=== PATIENT | female | born 1955 | race Caucasian/White ===

== ENCOUNTER 2016-08-26 04:50 | Inpatient (IN) | payer OTHER ==
[~2016-08-26] VITALS: Ht 160 cm; Wt 98.0 kg
--- NOTE | ~2016-08-26 | P ---
[facility] [place] [address] PROCEDURE REPORT Name: NAHED GOOD Aman Room #: 442-P [facility] IN M.R.#: [id number] Admission: 08/26/16 Attend Phys: Jose C Mac MD Discharge: Date of : 57 Report #: [id number] THIS REPORT FOR: //name// CC: Ja Mac INPATIENT UPPER ENDOSCOPY REPORT BRIEF HISTORY: The patient is a 61-year-old woman who presented with abdominal pain yesterday. She has right upper quadrant epigastric pain. These symptoms are new, and she has not had abdominal pain of this quality before. She does have a history of reflux disease, controlled with medical therapy without ongoing reflux symptoms. She is noted to have gallstones on ultrasound. PREOPERATIVE DIAGNOSIS: Abdominal pain. POSTOPERATIVE DIAGNOSES: 1. A 4-5 cm sliding-type hiatus hernia. 2. Diffuse gastritis. MEDICATIONS: Deep sedation with propofol per anesthesia. SPECIMEN: Biopsies of gastritis. ESTIMATED BLOOD LOSS: 3 mL. PROCEDURE: EGD with biopsy. FINDINGS: Prior to propofol sedation, procedure of upper endoscopy discussed with the patient as well as potential risks and its complications. She indicates she understands and desires to proceed. DESCRIPTION OF PROCEDURE: With the patient in left lateral decubitus position, the [employer] video endoscope was inserted in the cervical esophagus under direct vision without difficulty. Examination of this organ through its entire length revealed normal esophageal mucosa down the squamocolumnar junction. Squamocolumnar junction was noted to be within normal limits. No ulcers, erosions or Spear mucosa was seen. However, she was noted to have a moderately large hiatus hernia measuring about 5 cm greatest dimension. The mucosa of the hernia was normal. No blood was seen. No ulcers were seen associated with the hernia. Scope was advanced into the stomach, was examined on end views as well as retroflexed views. There was erythema in the antrum. No ulcers, erosions or bleeding lesions were seen. Upon retroflexion, the hiatus hernia was seen. No other abnormalities were identified. The pylorus, duodenal bulb and postbulbar sweep were all inspected and noted to be within [facility] [address] [place] [address] PROCEDURE REPORT Name: MARIA R GOODPATRICIA Newton Room #: 442-P [facility] IN ..#: [id number] Admission: 08/26/16 Attend Phys: Jose C Mac MD Discharge: Date of : 57 Report #: [id number] normal limits. At that point, the scope was slowly withdrawn, and careful circumferential views confirmed the above findings. The patient tolerated the procedure well. CONDITION OF THE PATIENT UPON DISCHARGE: Following procedure, the patient drowsy and prepared for colonoscopy. DISPOSITION: I do not see evidence of ulcer. Her pain certainly may be related to gallbladder disease. We will follow up on biopsies. We will proceed with colonoscopy at this time for evaluation of her rectal bleeding. <ELECTRONICALLY SIGNED> By: Dutch German MD 08/28/16 1742 1214 [id number] Dutch German MD /nt
--- NOTE | ~2016-08-26 | P ---
[facility] [place] [address] PROCEDURE REPORT Name: NAHED GOOD Aman Room #: 442-P [facility] IN M.R.#: [id number] Admission: 08/26/16 Attend Phys: Jose C Mac MD Discharge: Date of : 57 Report #: [id number] THIS REPORT FOR: //name// CC: Ja Mac INPATIENT COLONOSCOPY REPORT BRIEF HISTORY: The patient is a 61-year-old woman with recent rectal bleeding. She last had a colonoscopy more than 5 years ago. PREOPERATIVE DIAGNOSIS: Rectal bleeding. POSTOPERATIVE DIAGNOSES: 1. Diminutive polyp, 40 cm. 2. Moderately severe diverticulosis coli. 3. Small internal hemorrhoids. MEDICATIONS: Deep sedation with propofol per anesthesia. SPECIMEN: Polyp from 40 cm. ESTIMATED BLOOD LOSS: 3 mL. PROCEDURE: Colonoscopy to cecum and terminal ileum with biopsy. FINDINGS: Prior to propofol sedation, procedure of colonoscopy discussed with the patient as well as potential risks and its complications. She indicates she understands and desires to proceed. DESCRIPTION OF PROCEDURE: With the patient in left lateral decubitus position, digital examination was completed which revealed no abnormalities. Subsequently, the [employer] video colonoscope was introduced into the rectum and advanced under direct vision to the cecum. Done with minimal difficulty. The cecum was identified by the ileocecal valve and the appendiceal orifice. I was able to visualize the distal segment of terminal ileum, which was inspected and noted to be unremarkable. At that point, the scope was withdrawn, and careful circumferential views obtained including retroflexing the scope in the ascending colon. Upon slow withdrawal of the scope, there was noted to be some limitations of prep, but this washed up very easily and we were able to suction away the material. As we withdrew the scope, the mucosa was inspected. She was noted to have mucosa. No inflammatory changes were seen. An occasional diverticulum was seen in the proximal colon, but no significant abnormalities were noted until we reached the left colon, at which point she was found to have a diminutive polyp at 40 cm. This polyp was removed by biopsy. Scope was [facility] [address] [place] [address] PROCEDURE REPORT Name: LATISHANAHED Room #: 442-P [facility] IN ..#: [id number] Admission: 08/26/16 Attend Phys: Jose C Mac MD Discharge: Date of : 57 Report #: [id number] further withdrawn, and she was noted have moderately severe diverticular disease without endoscopic evidence of diverticulitis. No blood was seen. As we withdrew the scope, no additional abnormalities were seen. The scope was withdrawn into the rectum, and no mucosal abnormalities were seen. Upon retroflexion, small hemorrhoids were seen. This is likely the site of her recent rectal bleeding. Active bleeding was not seen. Scope was withdrawn. The patient tolerated the procedure well. DISPOSITION: The patient presented with a rectal bleeding. Findings today reveal diverticular disease and a small polyp and hemorrhoids. The bleeding likely came from the hemorrhoids. We will follow up on the path. If this is an adenoma, we will have her return for followup colonoscopy in 5 years; if not, 10 years would be indicated. <ELECTRONICALLY SIGNED> By: Dutch German MD 08/28/16 1742 1241 0249 Dutch German MD /nt
--- NOTE | ~2016-08-26 | O ---
[facility] [place] [address] OPERATIVE REPORT Name: NAHED GOOD Room #: 442-P ADM IN M.R.#: [id number] Admission: 08/26/16 Attend Phys: Jose C Mac MD Discharge: Date of : 57 Report #: [id number] THIS REPORT FOR: //name// CC: Bakari Mac DATE OF SERVICE: 08/28/2016 PREOPERATIVE DIAGNOSES: Cholelithiasis, possible choledocholithiasis, and umbilical hernia, symptomatic. POSTOPERATIVE DIAGNOSES: Cholelithiasis, choledocholithiasis, and umbilical hernia. SURGEON: Gian Ulloa MD HOUSE WIRER: Shahram Benitez MD PROCEDURE: Laparoscopic cholecystectomy with intraoperative cholangiogram, laparoscopic primary suture repair of umbilical hernia, modifier 22 secondary to BMI of 38 with significant intra-abdominal adipose tissue and distended colon giving difficult visualization of the gallbladder fossa. Intraoperative cholangiogram showed multiple filling defects in the distal common bile duct, unable to be flushed through with glucagon and normal saline. SPECIMENS TO PATHOLOGY: Gallbladder and contents. ESTIMATED BLOOD LOSS: 25 mL. COMPLICATIONS: None applicable. INDICATION FOR PROCEDURE: The patient is a very pleasant 61-year-old female patient with history of cholelithiasis and upper abdominal pain as well as recent rectal bleeding from hemorrhoids. She had been evaluated by Gastroenterology and EGD was essentially unremarkable. General surgery had been consulted for potential cholecystectomy regarding known history of gallstones with upper abdominal pain. Detailed discussion of risks and benefits of surgical intervention was held with the patient including bleeding, pain, infection, damage to surrounding structures such as liver, common bile duct, small-bowel, duodenum, colon and stomach as well as possible postoperative infection and abscess formation. Each of these were noted to potentially need further intervention. It was also discussed that potentially unforeseen circumstances may arise, which may not have been specifically mentioned, but which might contribute to postoperative issues. All questions were answered to the patient's satisfaction. Written informed consent was obtained. [address] [address] OPERATIVE REPORT Name: LATISHANAHED Room #: 442-P [facility] IN [facility].#: [id number] Admission: 08/26/16 Attend Phys: Jose C Mac MD Discharge: Date of : 57 Report #: [id number] DESCRIPTION OF PROCEDURE: The patient was brought to the operating room and placed in a supine position. Timeout was taken to verify the patient's identity and to plan the procedure. SCDs were in place on the lower extremities bilaterally. Preoperative antibiotics were administered. Anesthesia was induced. The patient was intubated. Abdomen was sterilely prepped and draped in standard fashion. Right upper quadrant 5 mm incision was made after local anesthetic had been infiltrated. A 5-mm 0-degree laparoscope was inserted using direct visual access to the peritoneal cavity. Pneumoperitoneum was created and inspection of the viscera showed that no injury had occurred upon entry. The abdominal wall was notably significantly thick and this made entry difficult; however, this was done successfully. A subxiphoid 5-mm port was made in similar fashion and a 5-mm balloon port was placed under direct vision. A 12-mm periumbilical port was placed under direct vision at a site separate from the umbilical hernia. The 5-mm right lateral port was placed after the patient had been placed in reverse Trendelenburg right side up position. Colon had to be held out of the away in order to place this port safely as the colon was noted to be distended and full of gas. The right upper quadrant structures were examined and the liver was noted to be steatotic and firm. This made difficult to retract the gallbladder anterolaterally as the liver was immobile and stiff. Ultimately the infundibulum was carefully dissected out and cystic duct was carefully identified as was the cystic artery. Critical view of safety was obtained. The cystic artery was taken down with clips above and below and transected with Sonicision energy device. Cystic duct was clipped near the gallbladder and incision was made in the cystic duct. Cholangiocatheter was inserted into this opening and this was clipped into place. Cholangiogram was then performed and the biliary tree was well visualized. There was noted to be a filling defect, which did not appear to be well circumscribed, but which appeared to be possibly more consistent with biliary sludge in the distal common bile duct to the level of the ampulla. Only a trickle of contrast to be seen passing that region and despite administration of glucagon 2 ampules and flushing with sterile saline under pressure. This was unable to be flushed through. Cholangiogram was therefore discontinued. Cholangiocatheter was removed. Cystic duct was clipped times 3 on the downside and transected using Sonicision energy device. Gallbladder was then resected from the fossa using Sonicision. Gallbladder was placed into an EndoCatch bag and removed from the umbilical port site. This was opened on the backtable and was noted to have significant gallbladder stones and sludge within. Attention was returned to the infrahepatic space and electrocautery was used on several areas of oozing with excellent hemostatic control. The infrahepatic space was then irrigated with copious sterile saline and suctioned clear. Hemostasis was again verified. The umbilical hernia site was closed with oyprid-fo-khukt #1 PDS suture under direct vision with a suture passer. The 12-mm port was removed and the port site was closed with 0 PDS vbcpup-sa-wygab suture on a passer under direct vision. The 5-mm ports were then withdrawn after pneumoperitoneum had been removed. Further local anesthetic was infiltrated in each of the 4 port sites. Skin was closed [facility] [address] [place] [address] OPERATIVE REPORT Name: NAHED GOOD Room #: 442-P [facility] IN ..#: [id number] Admission: 08/26/16 Attend Phys: Jose C Mac MD Discharge: Date of : 57 Report #: [id number] at each of the sites using 4-0 Monocryl subcuticular stitches. Dermabond was applied superficially at each of the 4 sites. At this point, the case was ended, all instrumentation had been extracted and accounted for. All counts were correct per nursing report. The patient was then extubated and taken to the postoperative care unit in stable condition. <ELECTRONICALLY SIGNED> By: Gian Ulloa MD 08/30/16 0840 1257 1334 Gian Ulloa MD /nt
--- NOTE | ~2016-08-26 | S ---
[facility] [place] [address] SURGICAL PATH RPT PROCEDURE Name: MOHSEN GOOD Room #: 442-P ADM IN M.R.#: [id number] Admission: 08/26/16 Date of : 57 Discharge: Report #: [id number] Path Case #: [id number] PATHOLOGY REPORT COLLECTION DATE: 08/28/2016 RECEIVED DATE: 08/29/2016 SUBMITTING PHYS: Dr. Gian Ulloa OTHER PHYS: Dr. Bakari Benitez SPECIMEN(S) RECEIVED: A.Gallbladder * * * * * * * * * * * * FINAL DIAGNOSIS: Gallbladder, cholecystectomy: - Mild chronic cholecystitis. - Cholelithiasis. (IUV:mml; d/t: 08/30/2016) PATHOLOGIST: Susie Yeung M.D. REPORT ELECTRONICALLY SIGNED BY: Susie Yeung M.D. DATE/TIME: 08/30/2016 16:28 * * * * * * * * * * * * GROSS PATHOLOGY: Received in formalin labeled "Mohsen Good gallbladder," is a 6.8 x 2.2 x 1.4 cm, previously opened gallbladder with blue-alamo serosal surfaces. Opening the gallbladder reveals a velvety, bile-stained mucosa and an average wall thickness of 0.1 cm. Calculi are present displaying a yellow-negron and multinodular appearance, and no masses are noted grossly. [employer] sections from the body and fundus are submitted along with the proximal margin in cassette A1. (CAA; 08/29/2016) CLINICAL HISTORY: Cholecystitis, umbilical hernia INITIAL CPT CODE(S): A; 62727 Professional services performed by [facility] at [facility] [address] , [place] [address] [facility] [address] [place] [address] SURGICAL PATH RPT PROCEDURE Name: MOHSEN GOOD Room #: 442-P ADM IN M.R.#: [id number] Admission: 08/26/16 Date of : 57 Discharge: Report #: [id number] Path Case #: [id number] Technical services performed by [facility] at [address] [place] [address], [facility] [address] [address]. [facility] [address] [place] [address] PHONE: [phone] DIRECTOR: Daljit Welsh M.D. * * * END OF REPORT * * *
--- NOTE | ~2016-08-26 | D ---
[facility] [place] [address] DISCHARGE SUMMARY Name: MARIA R GOODPATRICIA Newton Room #: 442-P [facility] IN M.R.#: [id number] Admission: 08/26/16 Attend Phys: Jose C Mac MD Discharge: 08/31/16 Date of : 57 Report #: [id number] THIS REPORT FOR: //name// CC: Bakari Mac FINAL DIAGNOSES: 1. Acute cholecystitis. 2. Elevated LFTs. 3. Asthma. PROCEDURES: 1. Laparoscopic cholecystectomy. 2. ERCP. HOSPITAL COURSE: The patient was admitted with abdominal pain with lab data including elevated LFTs. Ultimately, she was diagnosed with cholelithiasis and acute cholecystitis. She was taken to the operating room for laparoscopic cholecystectomy. See that report. The following day, she went back to OR for ERCP and due to obstruction of the common bile duct, sludge was removed. Please see that separate report. Following this procedure, she was advanced to a diet. She had no other interval complication. Her home medications were continued and labs were improving. PHYSICAL EXAMINATION: GENERAL: On the day of discharge, she was awake and alert, in no distress. LUNGS: Her lungs were clear. HEART: Heart rate is regular. ABDOMEN: Soft. EXTREMITIES: Showed no edema. She had stable vital signs. Her LFTs were normalizing. DISPOSITION: She will be transferred to a long term facility for rehabilitation efforts before returning home. I have signed her transfer medications. She will follow up with Dr. Lucio in one month. By: 0922 1930 Jagdish Morrissey MD /nt
--- NOTE | ~2016-08-26 | P ---
[facility] [place] [address] PROCEDURE REPORT Name: NAHED GOOD Aman Room #: 442-P [facility] IN M.R.#: [id number] Admission: 08/26/16 Attend Phys: Jose C Mac MD Discharge: Date of : 57 Report #: [id number] THIS REPORT FOR: //name// CC: LUDWIN Mac PREOPERATIVE DIAGNOSIS: Choledocholithiasis. POSTOPERATIVE DIAGNOSIS: Choledocholithiasis. MEDICATIONS: Deep sedation with propofol per anesthesia. SPECIMEN: None. ESTIMATED BLOOD LOSS: None. PROCEDURE: ERCP with endoscopic sphincterotomy and removal of sludge and the common bile duct. FINDINGS: Prior to intubation and general anesthesia, the procedure of ERCP, sphincterotomy, and stone removal was discussed with the patient as well as all potential risks, benefits, and complications. She indicates she understands and desires to proceed. The patient was intubated and placed under anesthesia and then placed in the prone position. Subsequently, the [employer] video side-viewing endoscope was inserted in the cervical esophagus and advanced under direct vision to the esophagus, through the stomach, across the pylorus and duodenum. In the duodenum, , papilla was identified. She had a fairly long duodenal segment of the common bile duct. The pylorus was not seen in the duodenum. We cannulated with 0.025 sphincterotome. Initial passage resulted in cannulation of the pancreatic duct, this was recognized without injection of contrast. The sphincterotome was removed and readjusted and with the second pass, we obtained deep cannulation of the common bile duct. Contrast was injected. The intrahepatic ducts were normal in size. The common bile duct was no more than 5-6 mm. Distally, there appeared to be an opaque area consistent with sludge, which had been seen on intraoperative cholangiogram yesterday. The sphincterotome was positioned over the papilla. The sphincterotomy was completed. There was no bleeding. Bile and a small amount of debris came from the duct. We made several sweeps with the balloon and only a small amount of debris came from the duct. Large stone was not encountered. We filled the duct with contrast and no filling defects were seen. We filled the balloon and very carefully filled the common bile duct and no additional filling defects were seen. The balloon and catheter were withdrawn and there was good drainage from the duct without evidence of distal filling defects. Scope was withdrawn. [facility] [address] [place] [address] PROCEDURE REPORT Name: RAMYA GOODJEN Newton Room #: 442-P [facility] IN [facility]#: [id number] Admission: 08/26/16 Attend Phys: Jose C Mac MD Discharge: Date of : 57 Report #: [id number] patient tolerated the procedure well. DISPOSITION: ERCP completed, a small amount of debris removed from the bile duct. There was good drainage of bile duct. Adequate sphincterotomy was achieved. We will follow up on liver studies in the morning. <ELECTRONICALLY SIGNED> By: Dutch German MD 08/30/16 1021 1826 1013 Dutch German MD /nt
--- NOTE | ~2016-08-26 | H ---
[facility] [place] [address] HISTORY AND PHYSICAL Name: NAHED GOOD Room #: 442-P [facility].#: [id number] Admission: 08/26/16 Attend Phys: Jose C Mac MD Discharge: 08/31/16 Date of : 57 Report #: [id number] THIS REPORT FOR: //name// CC: Bakari Mac ATTENDING PHYSICIAN: Dr. Bakari Lucio. DICTATING PHYSICIAN: Dr. Jose C Mac. DATE OF ADMISSION: 08/26/2016. DATE OF DICTATION: 08/26/2016. CHIEF COMPLAINT: Burning epigastric pain and rectal bleeding. HISTORY OF PRESENT ILLNESS: The patient is a 61-year-old female who presented to the Emergency Room with complaints of having burning epigastric pain which started last evening. The patient reports that it started spontaneously and it disturbed her sleep. The patient presented to the emergency room and was evaluated for her rectal bleeding, which was noted to be probably related to hemorrhoids. The patient also was noted to have elevated liver enzymes for which a CT abdomen was done and showed evidence of gallstones. The ultrasound confirmed, but there was no evidence of any cholecystitis. There was no elevated white cell count. The patient is now being admitted to the hospital for further management of gallstones and rectal bleeding. She does report that her brother is the durable power of business law teacher, but he is out of the country. PAST MEDICAL HISTORY: Significant for history of Parkinson's disease, obsessive compulsive disorder and fracture of the elbow and right rotator cuff injury and asthma. ALLERGIES: SHE IS KNOWN TO BE ALLERGIC TO PENICILLIN AND TETRACYCLINE. MEDICATIONS: She was currently on was citalopram 40 mg at bedtime, Asmanex, Seroquel, ranitidine, propranolol 40 mg 3 times a day, fluticasone, amlodipine, aspirin, Atrovent, Singulair, omeprazole, and clonazepam. SOCIAL HISTORY: The patient does drink alcohol. She does not smoke. REVIEW OF SYSTEMS: The patient denied any nausea, vomiting, chest pain or breathing difficulty or any urinary symptoms. PHYSICAL EXAMINATION: GENERAL: Elderly lady was resting in bed. She appeared to be mildly anxious and was having upper extremity tremors. She was awake, alert, oriented to place and person. [address] [address] HISTORY AND PHYSICAL Name: MARIA R GOODPATRICIA Newton Room #: 442-P [facility]#: [id number] Admission: 08/26/16 Attend Phys: Jose C Mac MD Discharge: 08/31/16 Date of : 57 Report #: [id number] VITAL SIGNS: She was afebrile with a pulse of 71 per minute and regular, temperature was 36.8, respiratory rate of 16, blood pressure 130/89, oxygen saturation 95% on room air. HEENT: Skull was atraumatic. There was no pallor, no icterus. There was some mucosa was moist. NECK: Supple. LUNGS: Clear to auscultation bilaterally with no wheezing or crackles. HEART: First and second heart sound, normal. ABDOMEN: Soft. The patient did not have any epigastric tenderness or right upper quadrant tenderness and there was no organomegaly. It was mainly obesity. NEUROLOGIC: The patient had upper extremity tremors and rigidity. RECTAL: Done in the Emergency Room showed external hemorrhoids with evidence of dark red blood present on the and around the rectum. EXTREMITIES: Did not reveal any edema. LABORATORY DATA: On admission showed a white cell count of 6.6, hemoglobin 12.2, hematocrit 37.8 and a platelet count of 303. The protime was 10.6, INR 1, PTT of 26.4. Sodium 136, potassium 4.3, chloride 105, bicarbonate 27, BUN of 13, creatinine 1.0 and glucose was 138, total bilirubin was 0.7, direct bilirubin 0.3, AST was 589, ALT 417, alkaline phosphatase of 257. Albumin was 3.2. UA done was positive for white cells and CT abdomen showed moderate size hiatal hernia. There were gallstones with no evidence of cholecystitis. There were multiple diverticula seen and a small umbilical hernia, fat containing umbilical hernia was noted. Ultrasound of the abdomen was done which showed evidence of cholelithiasis without bile duct obstruction or acute cholecystitis. ASSESSMENT: 1. Abdominal pain, suspect passage of gallstone. 2. Abnormal liver function tests. 3. Rectal bleeding. 4. Parkinson's disease. 5. Hypertension. 6. Obesity. PLAN: To admit her to the hospital and monitor her for abdominal pain and the abnormal liver function test. We will also get a general surgery consultation for her gallstones and management of the same. We will have a GI consultation for evaluation of rectal bleeding. We will repeat CBC and liver enzymes tomorrow morning. <ELECTRONICALLY SIGNED> By: Jose C Mac MD 09/15/16 0756 [id number] Jose C Mac MD /nt
--- NOTE | ~2016-08-26 | HC ---
[facility] [place] [address] CONSULTATION Name: MARIA R GOODPATRICIA Newton Room #: 442-P [facility] IN M.R.#: [id number] Admission: 08/26/16 Attend Phys: Jose C Mac MD Discharge: Date of : 57 Report #: [id number] THIS REPORT FOR: //name// CC: Bakari Mac DATE OF SERVICE: 08/27/2016 REASON FOR CONSULTATION: Cholelithiasis. HISTORY OF PRESENT ILLNESS: The patient is a 61-year-old female with history of obsessive-compulsive disorder with upper abdominal pain and cholelithiasis without obvious cholecystitis. She has mild liver function test elevation and has been evaluated by gastroenterology. The patient was admitted to hospitalist medicine service on 08/26/2016, for the above-mentioned upper abdominal pain as well as recent history of rectal bleeding. The patient lives by herself, but has family who check on her frequently. 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 Past medical history is also positive for radial head fracture on 09/27/2015, after a fall that was reduced as well as a right rotator cuff injury. PAST SURGICAL HISTORY: No prior abdominal operations. ALLERGIES: Include PENICILLIN and TETRACYCLINE. MEDICATIONS: Include citalopram, Asmanex, Seroquel, ranitidine, propranolol, fluticasone, amlodipine, aspirin, Atrovent, Singulair, omeprazole, and clonazepam. SOCIAL HISTORY: Negative for tobacco, ETOH or drug use. REVIEW OF SYSTEMS: Negative for nausea or vomiting. Positive for upper abdominal discomfort and reflux. Positive for melena recently. Ten-point review of systems is otherwise negative except for that mentioned in the HPI. PHYSICAL EXAMINATION: GENERAL: The patient is awake, alert, and oriented. She is in no acute distress. She is a difficult historian and has difficulty with conversation, taking a substantial amount of time to answer some fairly straightforward questions. She is quite anxious and does have a resting tremor. She is in no respiratory distress. Head is atraumatic and normocephalic. No icterus is appreciated. VITAL SIGNS: The patient is afebrile and normotensive. No tachycardia is appreciated. HEENT: Head is atraumatic and normocephalic. Mucosae are pink and moist. NECK: Supple, no jugular venous distention. LUNGS: Clear to auscultation bilateral. HEART: Regular without murmur. ABDOMEN: Soft, nondistended, minimally uncomfortable [address] [address] CONSULTATION Name: NAHED GOOD Room #: 442-P [facility] IN M.R.#: [id number] Admission: 08/26/16 Attend Phys: Jose C Mac MD Discharge: Date of : 57 Report #: [id number] in the right upper quadrant on deep palpation with no obvious Mcqueen sign noted. No rebound or guarding is appreciated. No abdominal surgical scars. EXTREMITIES: There is a resting tremor to the hands and upper extremities. Extremities without clubbing, cyanosis or edema. LABORATORY STUDIES: Reviewed and showed a white blood cell count of 6.6, hemoglobin of 12.2, and platelets of 303. Urinalysis showed 3+ blood. INR of 1.0. Lactate of 1.4, calcium 8.3, AST of 394, ALT of 523, alk phos of 245, total bilirubin of 0.5, BUN of 6, creatinine 0.9. CT scan of the abdomen and pelvis that was obtained on 08/26, shows moderate sized hiatal hernia, elevated right hemidiaphragm with no obvious liver abnormalities, cholelithiasis was noted without obvious cholecystitis or bile duct dilatation. No obvious inflammatory bowel changes. A few scattered diverticula in the proximal colon and sigmoid colon, small fat containing umbilical hernia with a small-bowel loop just deep to this with no obvious obstruction. Ultrasound of the abdomen on 08/26/2016, also obtained and that shows cholelithiasis without bile duct dilatation or acute cholecystitis, no tenderness upon palpation over the gallbladder with the ultrasound probe according to the report. IMPRESSION: A 61-year-old female with known history of hemorrhoids and recent melena reported as well as with upper abdominal pain and known history of cholelithiasis, no obvious signs of acute cholecystitis on clinical exam or laboratory or radiographic workup. Laboratory studies are consistent with recent passage of gallstone. This is also consistent with her history. RECOMMENDATIONS: 1. Agree with plan for admission and gastroenterology evaluation for potential EGD and colonoscopy. 2. Plan for laparoscopic cholecystectomy with intraoperative cholangiogram during this admission. Detailed discussion held with the patient regarding risks and benefits of this operation including bleeding, pain, infection, postoperative abscess, damage to surrounding structures such as duodenum, liver, bile ducts, stomach, colon, small-bowel, need for future procedure should these events; however, unlikely occur. All questions were answered to this patient's satisfaction and written informed consent was obtained. Attempt was also made to call the patient's brother who was apparently out of the country at this time and we will try to touch base with him later on to further discuss the operative plan. Consultation very much appreciated. We will continue to follow closely and make further recommendations based upon clinical status, radiographic and laboratory findings. <ELECTRONICALLY SIGNED> By: Gian Ulloa MD 08/30/16 0840 [id number] Gian Ulloa MD /nt
--- NOTE | ~2016-08-26 | S ---
[facility] [place] [address] SURGICAL PATH RPT PROCEDURE Name: LATISHAMOHSEN Room #: 442-P ADM IN M.R.#: [id number] Admission: 08/26/16 Date of : 57 Discharge: Report #: [id number] Path Case #: [id number] PATHOLOGY REPORT COLLECTION DATE: 08/27/2016 RECEIVED DATE: 08/27/2016 SUBMITTING PHYS: Dr. Dutch German OTHER PHYS: Dr. Jose C Lucio SPECIMEN(S) RECEIVED: A.Gastric bx B.Polyp at 40 cm * * * * * * * * * * * * FINAL DIAGNOSIS: A. Gastric mucosa, gastric, endoscopic biopsy: - Moderate reactive gastropathy. - Negative for intestinal metaplasia or atrophy. - Negative for Helicobacter pylori. B. Polyp, at 40 cm, endoscopic biopsy: - Tubular adenoma. - Negative for high grade dysplasia. COMMENT: Helicobacter pylori immunohistochemical stain performed on block A1 - negative. PATHOLOGIST: Susie Yeung M.D. REPORT ELECTRONICALLY SIGNED BY: Susie Yeung M.D. DATE/TIME: 08/29/2016 16:43 * * * * * * * * * * * * GROSS PATHOLOGY: A. Received in formalin labeled "Mohsen Good, gastric biopsy," are six segments of negron soft tissue measuring 1.0 x 1.0 x 0.1 cm in aggregate dimensions and ranging from 0.2 to 0.5 cm in maximum dimension. The specimen is submitted entirely in cassette A1. B. Received in formalin labeled "Mohsen Good, polyp at 40 cm," is a segment of negron soft tissue measuring 0.2 cm in maximum dimension. The specimen is submitted entirely in cassette B1. ([facility]; 08/28/2016) CLINICAL HISTORY: Abdominal pain, rectal bleeding, polyps, diverticulosis [address] [address] SURGICAL PATH RPT PROCEDURE Name: MOHSEN GOOD Room #: 442-P ADM IN .R.#: [id number] Admission: 08/26/16 Date of : 57 Discharge: Report #: [id number] Path Case #: [id number] INITIAL CPT CODE(S): A; 13033, 53341 B; 59593 Professional services performed by [facility] at [address], [place] [address] Technical services performed by [facility] at [address] [place] [address], [facility] [address] [address]. [facility] [place] [address] PHONE: [phone] DIRECTOR: Daljit Welsh M.D. * * * END OF REPORT * * *
[~2016-08-26 04:50] MED LIST: APAP W/CODEINE1 TA2 PO; ASMANEX220 MC1 INH; ASPIR 8181 MG PO; ATROVENT HFA14 GM INH; BENZTROPINE ME0.5 MG; BENZTROPINE ME0.5 MG PO; BISCOLAX10 MG RECTAL; CELEXA20 MG PO; CLONAZEPAM 0.50.5 M1 PO; COLACE100 MG PO; FLOVENT HFA 1110 MCG INH; GEODON80 MG PO; HYDROCODONE-APA1 TA1 PO; NORVASC5 MG PO; OMEPRAZOLE40 MG PO; PAXIL10 MG; PROPRANOLOL 1010 MG; PROPRANOLOL 1010 MG PO; SENNA PO; SEROQUEL 25 MG25 M1 PO; SINGULAIR 10 MG10 M1 PO; TYLENOL325 MG PO; ZANTAC 150MG T150 MG PO
[2016-08-26 04:51] VITALS: BP 139/80
[2016-08-26] MEDS ORDERED: CLONAZEPAM 0.50.5 M1 PO (05:04)
[2016-08-26] MEDS ORDERED: ASMANEX0.135 G1 INH (05:06)
[2016-08-26] MEDS ORDERED: ATROVENT HFA14 GM INH (05:07)
[2016-08-26] MEDS ORDERED: FLONASE 0.05%50 MCG NASAL (05:08)
[2016-08-26] MEDS ORDERED: SAPHRIS10 MG PO (05:09)
[2016-08-26] MEDS ORDERED: SEROQUEL 25 MG25 M1 PO (05:10)
[2016-08-26 05:12] LABS: URINE BILIRUBIN NEGATIVE (Negative); URINE BLOOD 3+ (Negative); URINE COLOR YELLOW; URINE GLUCOSE-RANDOM* NEGATIVE (Negative); URINE KETONES NEGATIVE (Negative); URINE LEUKOCYTES-REFLEX NEGATIVE (Negative); URINE PROTEIN (DIPSTICK) NEGATIVE (Negative); URINE SPECIFIC GRAVITY <= 1.005 (1.003-1.035); URINE UROBILINOGEN 0.2 E.U./dl (0.2-1.0)
[2016-08-26] MEDS ORDERED: INDERAL 20 MG T20 M1 PO (05:12)
[2016-08-26 05:25] LABS: SQUAMOUS 0-3 Few /LPF (0-3)
[2016-08-26 05:26] LABS: CASTS None Seen /LPF (None Seen); CRYSTALS None Seen /LPF (None Seen); URINE RBC 3-10 Few /HPF (0-2); URINE WBC-REFLEX 0-5 Rare /HPF (0-5)
[2016-08-26 05:42] LABS: ABSOLUTE NEUTROPHILS 4.8 thou/uL (1.4-8.2); BASOPHILS 0.6 % (0.0-2.0); EOSINOPHILS 0.8 % (0.0-3.0); HEMATOCRIT 37.8 % (37.0-47.0); HEMOGLOBIN 12.2 gm/dL (12.0-15.0); LYMPHOCYTES 15.5 % (24.0-44.0); MCH 27.5 pg (26.0-34.0); MCHC 32.4 g/dL (28.0-37.0); MONOCYTES 10.8 % (1.0-8.0); PLATELET COUNT 303 thou/uL (150-400); POLYS 72.3 % (36.0-66.0); RBC 4.45 mil/uL (4.20-5.00); RDW 15.2 % (10.5-14.5); WBC 6.6 thou/uL (4.0-11.0)
[2016-08-26 05:47] LABS: MANUAL DIFF NO
[2016-08-26 05:52] LABS: CALCIUM 8.7 mg/dL (8.5-10.1); POTASSIUM 4.3 mmol/L (3.5-5.1)
[2016-08-26 05:57] LABS: ALBUMIN 3.2 g/dL (3.4-5.0); DIRECT BILIRUBIN 0.3 mg/dL (<0.1-0.3); TOTAL BILIRUBIN 0.7 mg/dL (<0.1-1.0); TOTAL PROTEIN 7.7 g/dL (6.4-8.2)
[2016-08-26 06:51] LABS: APTT 26.4 Seconds (24.5-32.8); PROTIME 10.6 Seconds (9.3-11.4)
[2016-08-26 08:26] VITALS: BP 130/89
[2016-08-26] MEDS ORDERED: SAPHRIS10 MG SL (09:15)
[2016-08-26 16:40] VITALS: BP 131/77
[2016-08-26 20:05] VITALS: BP 143/83
[2016-08-27 04:04] VITALS: BP 140/88
[2016-08-27 05:57] LABS: ABSOLUTE NEUTROPHILS 3.7 thou/uL (1.4-8.2); BASOPHILS 0.6 % (0.0-2.0); EOSINOPHILS 1.9 % (0.0-3.0); HEMATOCRIT 35.4 % (37.0-47.0); HEMOGLOBIN 11.4 gm/dL (12.0-15.0); LYMPHOCYTES 26.3 % (24.0-44.0); MCH 27.4 pg (26.0-34.0); MCHC 32.2 g/dL (28.0-37.0); MCV 85.2 fL (80.0-100.0); PLATELET COUNT 274 thou/uL (150-400); POLYS 60.2 % (36.0-66.0); RBC 4.16 mil/uL (4.20-5.00); RDW 15.2 % (10.5-14.5); WBC 6.1 thou/uL (4.0-11.0)
[2016-08-27 06:00] LABS: MANUAL DIFF NO
[2016-08-27 06:11] LABS: ALBUMIN 2.8 g/dL (3.4-5.0); CALCIUM 8.3 mg/dL (8.5-10.1); CREATININE 0.9 mg/dL (0.6-1.0); POTASSIUM 3.7 mmol/L (3.5-5.1); TOTAL BILIRUBIN 0.5 mg/dL (<0.1-1.0); TOTAL PROTEIN 6.8 g/dL (6.4-8.2)
[2016-08-27 08:00] VITALS: BP 106/63
[2016-08-27 13:34] VITALS: BP 133/97
[2016-08-27 15:49] VITALS: BP 115/66
[2016-08-27 19:41] VITALS: BP 126/65
[2016-08-28 04:38] VITALS: BP 130/55
[2016-08-28 05:27] LABS: HEMATOCRIT 34.2 % (37.0-47.0); MCH 27.4 pg (26.0-34.0); MCHC 32.3 g/dL (28.0-37.0); MCV 84.8 fL (80.0-100.0); RBC 4.03 mil/uL (4.20-5.00); RDW 14.7 % (10.5-14.5); WBC 6.5 thou/uL (4.0-11.0)
[2016-08-28 05:53] LABS: ALBUMIN 2.7 g/dL (3.4-5.0); ALKALINE PHOSPHATASE 214 U/L (46-116); ANION GAP 7 mmol/L (7-16); BUN 3 mg/dL (7-18); CALCIUM 8.3 mg/dL (8.5-10.1); CHLORIDE 104 mmol/L (98-107); CO2 27 mmol/L (21-32); CREATININE 0.9 mg/dL (0.6-1.0); DIRECT BILIRUBIN < 0.1 mg/dL (<0.1-0.3); GLUCOSE 100 mg/dL (74-106); POTASSIUM 3.9 mmol/L (3.5-5.1); SGOT 131 U/L (15-37); SGPT 327 U/L (30-65); SODIUM 138 mmol/L (136-145); TOTAL BILIRUBIN 0.3 mg/dL (<0.1-1.0); TOTAL PROTEIN 6.6 g/dL (6.4-8.2)
[2016-08-28 09:21] VITALS: BP 118/77
[2016-08-28 18:45] VITALS: BP 139/66
[2016-08-28 20:15] VITALS: BP 127/61
[2016-08-28 21:15] VITALS: BP 116/57
[2016-08-28 23:40] VITALS: BP 134/70
[2016-08-29 04:06] VITALS: BP 126/62
[2016-08-29 04:30] LABS: HEMATOCRIT 36.4 % (37.0-47.0); HEMOGLOBIN 11.6 gm/dL (12.0-15.0); MCH 27.3 pg (26.0-34.0); MCHC 31.9 g/dL (28.0-37.0); MCV 85.6 fL (80.0-100.0); PLATELET COUNT 220 thou/uL (150-400); RBC 4.25 mil/uL (4.20-5.00); RDW 14.4 % (10.5-14.5); WBC 6.7 thou/uL (4.0-11.0)
[2016-08-29 04:34] LABS: MANUAL DIFF YES
[2016-08-29 04:45] LABS: ALBUMIN 2.8 g/dL (3.4-5.0); CALCIUM 8.4 mg/dL (8.5-10.1); CREATININE 0.8 mg/dL (0.6-1.0); MAGNESIUM 1.8 mg/dL (1.8-2.4); PHOSPHORUS 3.8 mg/dL (2.5-4.9); POTASSIUM 4.5 mmol/L (3.5-5.1); TOTAL BILIRUBIN 0.3 mg/dL (<0.1-1.0); TOTAL PROTEIN 6.5 g/dL (6.4-8.2)
[2016-08-29 05:03] LABS: ABSOLUTE NEUTROPHILS 6.2 thou/uL (1.4-8.2); ANISOCYTOSIS SLIGHT; TOTAL CELL COUNT 100
[2016-08-29 07:41] VITALS: BP 125/69
[2016-08-29 15:54] VITALS: BP 117/59
[2016-08-30 05:37] VITALS: BP 109/68
[2016-08-30 06:08] LABS: HEMATOCRIT 33.9 % (37.0-47.0); HEMOGLOBIN 10.9 gm/dL (12.0-15.0); MCH 27.5 pg (26.0-34.0); MCHC 32.3 g/dL (28.0-37.0); MCV 85.2 fL (80.0-100.0); PLATELET COUNT 244 thou/uL (150-400); RBC 3.98 mil/uL (4.20-5.00); RDW 14.6 % (10.5-14.5); WBC 9.5 thou/uL (4.0-11.0)
[2016-08-30 06:14] LABS: MANUAL DIFF YES
[2016-08-30 06:18] LABS: ALBUMIN 2.7 g/dL (3.4-5.0); CREATININE 0.9 mg/dL (0.6-1.0); POTASSIUM 3.9 mmol/L (3.5-5.1); TOTAL BILIRUBIN 0.2 mg/dL (<0.1-1.0); TOTAL PROTEIN 6.5 g/dL (6.4-8.2)
[2016-08-30 07:27] LABS: ABSOLUTE NEUTROPHILS 7.1 thou/uL (1.4-8.2); TOTAL CELL COUNT 100
[2016-08-30 07:28] LABS: ANISOCYTOSIS 1+
[2016-08-30 08:00] VITALS: BP 117/70
[2016-08-30 16:00] VITALS: BP 123/59
[2016-08-30 19:50] VITALS: BP 97/55
[2016-08-31 04:00] VITALS: BP 113/71
[2016-08-31 06:48] LABS: ALBUMIN 2.8 g/dL (3.4-5.0); ALKALINE PHOSPHATASE 160 U/L (46-116); DIRECT BILIRUBIN < 0.1 mg/dL (<0.1-0.3); SGOT 43 U/L (15-37); SGPT 142 U/L (30-65); TOTAL BILIRUBIN 0.3 mg/dL (<0.1-1.0); TOTAL PROTEIN 6.2 g/dL (6.4-8.2)
[2016-08-31 08:00] VITALS: BP 124/66
[2016-08-31] MEDS ORDERED: ACETAMINOPHEN325 M1 PO (08:20)
[2016-08-31] MEDS ORDERED: ENOXAPARIN40 MG/0.1 SUBQ (08:20)
[2016-08-31] MEDS ORDERED: CLONAZEPAM 0.50.5 M1 PO (08:21)
== END 2016-08-31 13:23 | DRG 354 ==
LOC: ER 04:50 → 4S 07:23 → EROBS 07:23 → 4S 08:27
PROVIDERS: Emergency Medicine; Internal Medicine; Internal Medicine Gastroenterology; Internal Medicine Geriatric Medicine; Otolaryngology; Specialist
PROC: 0DBK8ZX Excision of Ascending Colon, Via Natural or Artificial Opening Endoscopic, Diagnostic (ICD-10-PCS; 2016-08-27)
PROC: 0DB68ZX Excision of Stomach, Via Natural or Artificial Opening Endoscopic, Diagnostic (ICD-10-PCS; 2016-08-27)
PROC: BF0CYZZ Plain Radiography of Hepatobiliary System, All using Other Contrast (ICD-10-PCS; principal; 2016-08-28)
PROC: 0FT44ZZ Resection of Gallbladder, Percutaneous Endoscopic Approach (ICD-10-PCS; principal; 2016-08-28)
PROC: 0WQF4ZZ Repair Abdominal Wall, Percutaneous Endoscopic Approach (ICD-10-PCS; principal; 2016-08-28)
PROC: 0FC98ZZ Extirpation of Matter from Common Bile Duct, Via Natural or Artificial Opening Endoscopic (ICD-10-PCS; 2016-08-29)
DX: K42.9 Umbilical hernia without obstruction or gangrene (principal); K62.5 Hemorrhage of anus and rectum; E44.0 Moderate protein-calorie malnutrition; K80.20 Calculus of gallbladder without cholecystitis without obstruction; J45.909 Unspecified asthma, uncomplicated; R74.0 Nonspecific elevation of levels of transaminase and lactic acid dehydrogenase [LDH]; G20 Parkinson's disease; F42.9 Obsessive-compulsive disorder, unspecified; E66.9 Obesity, unspecified; K80.50 Calculus of bile duct without cholangitis or cholecystitis without obstruction; I10 Essential (primary) hypertension; K44.9 Diaphragmatic hernia without obstruction or gangrene; K29.70 Gastritis, unspecified, without bleeding; K64.8 Other hemorrhoids; Z79.82 Long term (current) use of aspirin; Z79.899 Other long term (current) drug therapy; Z88.0 Allergy status to penicillin; Z88.1 Allergy status to other antibiotic agents; Z87.81 Personal history of (healed) traumatic fracture; Z68.38 Body mass index [BMI] 38.0-38.9, adult; K57.30 Diverticulosis of large intestine without perforation or abscess without bleeding
CPT/HCPCS: 10195; 50010; 50101; 50249; 50411; 50555; 50850; 50886; 50944; 50962; 51975; 52265; 52266; 54022; 54118; 55245; 55317; 56462; 56525; 56526; 62110; 62900; 70005